=== PATIENT | male | born 1945 | race Caucasian/White ===

== ENCOUNTER → 2020-07-22 | Outpatient (CLI) | payer MEDICARE | LOC: EXRD 13:20 | DX: N17.9 Acute kidney failure, unspecified (principal) | CPT/HCPCS: 76775 ==

== ENCOUNTER → 2020-08-01 | Outpatient (CLI) | payer MEDICARE | LOC: RAD 12:34 | DX: R05 Cough (principal) | CPT/HCPCS: 71046 ==